=== PATIENT | female | born 1940 | race Caucasian/White ===

== ENCOUNTER 2016-09-30 14:49 | Inpatient (IN) | payer MEDICARE ==
[~2016-09-30] VITALS: Ht 161.3 cm; Wt 52.6 kg
[~2016-09-30 14:49] MED LIST: ALBU0.086 NEB; ASPI325T PO; B-1210005 PO; CARV3.125 PO; D31000CA PO; FEXO60TA PO; IPRA0.02 NEB; ISOS60 PO; KCL10C PO; LASI20TA PO; LEVA500T PO; PRED20 PO; ZOCO80TA PO
[2016-09-30 14:51] VITALS: BP 111/68; PULSE 112; RESP 20; O2SAT 98
[2016-09-30] MEDS ORDERED: SODIUM CHLORIDE 0.9% FLUSH 5 ML FLUSH IVF PRN ×2 (18:30→20:30)
--- NOTE | 2016-09-30 18:51 | PD ---
HPI Chief Complaint: Edema Time Seen by Provider: 18:17 Travel History International Travel<30 days: No Contact w/Intl Traveler<30days: No Traveled to known affect area: No History of Present Illness HPI 76-year-old female with history of CAD, CABG, hypertension, hyperlipidemia, CHF , here for evaluation of bilateral lower extremity edema, ulcerations, and weeping. Patient reports that the symptoms have been going on for the last month, however the weeping has been worse over the last week. She is having a moderate amount of pain in her lower extremities which is worse with movement, weightbearing, and palpation. She denies chest pain or dyspnea. Chart review shows that she had an echocardiogram on 02/21/13 with an EF of 20-25% with diffuse hypokinesis. She denies fevers or chills. No history of DVT or PE. She states that she was seen by her primary care physician who told her that she has poor circulation in her legs. PFSH Past Medical History Arthritis: Yes Asthma: No Autoimmune Disease: No Blood Disorders: No Anxiety: Yes Depression: Yes Heart Rhythm Problems: No Cancer: Yes Cardiac Catheterization: Yes Cardiovascular Problems: Yes High Cholesterol: Yes Chemotherapy: No Chest Pain: Yes (RESOLVED SINCE CABG) Congestive Heart Failure: Yes COPD: No Cerebrovascular Accident: Yes Coronary Artery Disease: Yes Diabetes: No Diminished Hearing: No Endocrine: No GERD: No Genitourinary: Yes Headaches: Yes Hiatal Hernia: No Hypertension: Yes Immune Disorder: No Kidney Stones: No Musculoskeletal: Yes Neurologic: Yes Psychiatric: Yes Reproductive: No Respiratory: Yes (HISTORY OF BRONCHITIS) Migraines: No Radiation Therapy: No Renal Failure: No Seizures: No Sickle Cell Disease: No Sleep Apnea: No Thyroid Disease: No Ulcer: No ?: Not Menopausal: Yes Past Surgical History Abdominal Surgery: Yes (APPY A CHILD) AICD: No Appendectomy: Yes Arteriovenous Shunt: No Cardiac Surgery: Yes (CABG 1999) Coronary Artery Bypass Graft: Yes (X2 YEAR 1999) Ear Surgery: No Endocrine Surgery: No Eye Surgery: Yes (CATARACT) Genitourinary Surgery: No Gynecologic Surgery: Yes (CONE BX) Insulin Pump: No Joint Replacement: No Oral Surgery: No (TONSILLECTOMY) Pacemaker: No Thoracic Surgery: No Tonsillectomy: Yes Other Surgery: Yes (INCISIONAL HERNIA AFTER CABG, REPAIRED) Social History Alcohol Use: Yes ("COUPLE DRINKS SEVERAL TIMES A WEEK") Tobacco Use: Yes (1 PPD) Substance Use: No Allergies-Medications (Allergen,Severity, Reaction): Coded Allergies: Sulfa (Verified Allergy, Mild, 09/30/16) Molds and Smuts (Verified Allergy, Unknown, 09/30/16) Reported Meds & Prescriptions Reported Meds & Active Scripts Active Reported Albuterol Neb (Albuterol Sulfate) 2.5 Mg/3 Ml Neb 2.5 Mg NEB Q4HR NEB PRN Aspirin DR (Aspirin) 81 Mg Tabdr 81 Mg PO EVERY OTHER DAY Fexofenadine (Fexofenadine HCl) 60 Mg Tab 60 Mg PO DAILY Ipratropium Neb (Ipratropium Cove) 0.5 Mg/2.5 Ml Amp 0.5 Mg NEB Q4HR NEB PRN Lasix (Furosemide) 20 Mg Tab 20 Mg PO DAILY K-Tab (Potassium Chloride) 10 Meq Tab 10 Meq PO DAILY Benadryl Allergy (Diphenhydramine HCl) 25 Mg Tab 25 Mg PO BID Tramadol (Tramadol HCl) 50 Mg Tab 50 Mg PO Q6H PRN Simvastatin 80 Mg Tab 80 Mg PO HS Review of Systems Except as stated in HPI: all other systems reviewed are Neg Physical Exam Narrative GENERAL: Well-developed, well-nourished, comfortable, no acute distress. SKIN: Significant bilateral lower extremity edema, left greater than right with superficial skin ulceration to the dorsal aspect of her right foot with surrounding ecchymosis and smaller ulcerations to the dorsal aspect of the left foot with weeping. Bilateral lower extremities are cool to the touch. Well- healed vertical scar on left medial leg from a venous grafting for CABG. HEAD: Atraumatic. Normocephalic. EYES: Pupils equal and round. No scleral icterus. No injection or drainage. ENT: Mucous membranes pink and moist. NECK: Trachea midline. No JVD. CARDIOVASCULAR: Regular rate and rhythm. Unable to palpate bilateral dorsalis pedis pulses, but this is likely secondary to significant amount of edema. Capillary refill is slightly delayed in bilateral toes. RESPIRATORY: No accessory muscle use. Clear to auscultation. Breath sounds equal bilaterally. GASTROINTESTINAL: Abdomen soft, non-tender, nondistended. MUSCULOSKELETAL: No obvious deformities. No clubbing. No cyanosis. Significant bilateral lower extremity edema with skin exam as above. NEUROLOGICAL: Awake and alert. No obvious cranial nerve deficits. Motor grossly within normal limits. Normal speech. PSYCHIATRIC: Appropriate mood and affect; insight and judgment normal. Data Data Last Documented VS Vital Signs Date Time Temp Pulse Resp B/P Pulse Ox O2 Delivery O2 Flow Rate FiO2 09/30/16 14:51 112 20 111/68 98 Room Air Orders Electrocardiogram (09/30/16 18:29) B-Type Natriuretic Peptide (09/30/16 18:29) Ckmb (Isoenzyme) Profile (09/30/16 18:29) Complete Blood Count With Diff (09/30/16 18:29) Comprehensive Metabolic Panel (09/30/16 18:29) Prothrombin Time / Inr (Pt) (09/30/16 18:29) Act Partial Throm Time (Ptt) (09/30/16 18:29) Troponin I (09/30/16 18:29) Chest, Single Ap (09/30/16 18:29) Ecg Monitoring (09/30/16 18:29) Iv Access Insert/Monitor (09/30/16 18:29) Oximetry (09/30/16 18:29) Sodium Chloride 0.9% Flush (Ns Flush) (09/30/16 18:30) Lactic Acid (09/30/16 18:29) Blood Culture (09/30/16 18:29) Us Leg Venous Doppler Bilat (09/30/16 ) Tibia/Fibula (Ap/Lat) (09/30/16 ) Tibia/Fibula (Ap/Lat) (09/30/16 ) Labs Laboratory Tests Test 09/30/16 18:45 White Blood Count 10.7 TH/MM3 Red Blood Count 5.39 MIL/MM3 Hemoglobin 13.9 GM/DL Hematocrit 43.6 % Mean Corpuscular Volume 80.8 FL Mean Corpuscular Hemoglobin 25.9 PG Mean Corpuscular Hemoglobin 32.0 % Concent Red Cell Distribution Width 16.6 % Platelet Count 225 TH/MM3 Mean Platelet Volume 8.5 FL Neutrophils (%) (Auto) 70.5 % Lymphocytes (%) (Auto) 20.3 % Monocytes (%) (Auto) 8.3 % Eosinophils (%) (Auto) 0.2 % Basophils (%) (Auto) 0.7 % Neutrophils # (Auto) 7.6 TH/MM3 Lymphocytes # (Auto) 2.2 TH/MM3 Monocytes # (Auto) 0.9 TH/MM3 Eosinophils # (Auto) 0.0 TH/MM3 Basophils # (Auto) 0.1 TH/MM3 CBC Comment DIFF FINAL Differential Comment MDM Medical Decision Making Medical Screen Exam Complete: Yes Emergency Medical Condition: Yes Medical Record Reviewed: Yes Interpretation(s) EKG: Sinus, rate 107, normal axis, Q waves in anterior leads, left atrial enlargement, no acute ischemic normality. Differential Diagnosis Fluid overload, PVD, cellulitis, osteomyelitis, necrotizing fasciitis, DVT, Narrative Course Chart review shows that in 2003 the patient had an arterial study that showed evidence of moderate occlusive disease in both lower extremities, possibly at or below the level of the trifurcation. Vital signs show heart rate 112, blood pressure 111/68, pulse ox 98% on room air , respiratory rate 20 breaths per minute. CBC is essentially unremarkable. At approximately 7:00 PM at the end of my shift the patient was signed out to Dr. Zaroc will follow-up with the rest of the patient's labs, imaging studies, and will disposition the patient. Al Glez MD Sep 30, 2016 18:51
--- NOTE | 2016-09-30 19:03 | RADRPT ---
EXAM DATE/TIME: 09/30/2016 18:46 [facility] COMPARISON: CHEST PA & LAT, November 27, 2015, 8:23. CHEST SINGLE AP, November 23, 2015, 3:53. INDICATIONS : Short of breath MEDICAL HISTORY : Cardiovascular disease. SURGICAL HISTORY : CABG. ENCOUNTER: Initial ACUITY: 2 days PAIN SCORE: 0/10 LOCATION: chest FINDINGS: A single view of the chest demonstrates hyperaeration bilaterally with interstitial infiltrates bilat erally. This can be seen with pulmonary edema versus pneumonia. Some of this may be chronic in nature . The heart size is enlarged but stable. There is evidence of previous cardiothoracic surgery. No sig nificant pleural effusions. The bony structures are stable.. CONCLUSION: Hyperaeration with interstitial infiltrates bilaterally. Pulmonary edema versus pneumonia would be th e considerations. Ronak Bedoya MD on September 30, 2016 at 19:00 Board Certified Radiologist. This report was verified electronically.
--- NOTE | 2016-09-30 19:04 | RADRPT ---
EXAM DATE/TIME: 09/30/2016 18:49 [facility] COMPARISON: No previous studies available for comparison. INDICATIONS : Pain, swelling and redness left tibia MEDICAL HISTORY : None. SURGICAL HISTORY : CABG. Vain harvest for cabg ENCOUNTER: Initial ACUITY: 1 week PAIN SCORE: 7/10 LOCATION: Left Tibia FINDINGS: Two view examination of the left tibia demonstrates no evidence of fracture or dislocation. There is osteopenia of the bony structures. Otherwise, the bony structures are intact. Soft tissues are within normal limits. Surgical clips are seen throughout the soft tissues. There are some degenerative grossman ges at the knee joint.. CONCLUSION: Osteopenia. Otherwise unremarkable examination. Ronak Bedoya MD on September 30, 2016 at 19:01 Board Certified Radiologist. This report was verified electronically.
[2016-09-30 19:05] LABS: AUTOMATED NEUTROPHIL # 7.6 TH/MM3 (1.8-7.7); BASOPHIL # 0.1 TH/MM3 (0-0.2); BASOPHIL % 0.7 % (0.0-2.0); EOSINOPHIL % 0.2 % (0.0-4.0); HEMATOCRIT 43.6 % (35.0-46.0); HEMO FLAGS DIFF FINAL; LYMPH % 20.3 % (9.0-44.0); LYMPHOCYTE # 2.2 TH/MM3 (1.0-4.8); MEAN CELL VOLUME 80.8 FL (80.0-100.0); MEAN CORPUSCULAR HEMOGLOBIN 25.9 PG (27.0-34.0); MONO % 8.3 % (0.0-8.0); NEUT % 70.5 % (16.0-70.0); PLATELET COUNT 225 TH/MM3 (150-450); RED BLOOD COUNT 5.39 MIL/MM3 (4.00-5.30); RED CELL DISTRIBUTION WIDTH 16.6 % (11.6-17.2); WHITE BLOOD COUNT 10.7 TH/MM3 (4.0-11.0)
--- NOTE | 2016-09-30 19:05 | RADRPT ---
EXAM DATE/TIME: 09/30/2016 18:53 [facility] COMPARISON: No previous studies available for comparison. INDICATIONS : Pain, swelling and redness right tibia MEDICAL HISTORY : None. SURGICAL HISTORY : None. ENCOUNTER: Initial ACUITY: 1 week PAIN SCORE: 8/10 LOCATION: Right Tibia FINDINGS: Two view examination of the right tibia demonstrates no evidence of fracture or dislocation. There is osteopenia the bony structures. There are some primary degenerative changes of the knee joint. Other [place], the bony structures are intact. There is some vascular calcifications present.. CONCLUSION: Osteopenia. Degenerative changes at the knee joint. Otherwise, unremarkable exam. Ronak Bedoya MD on September 30, 2016 at 19:03 Board Certified Radiologist. This report was verified electronically.
[2016-09-30] MEDS ORDERED: K-TA10TA PO (19:11)
[2016-09-30] MEDS ORDERED: BENA25TA3 PO (19:11)
[2016-09-30] MEDS ORDERED: SIMV80TA PO (19:11)
[2016-09-30] MEDS ORDERED: FURO1TAB62 PO (19:11)
[2016-09-30] MEDS ORDERED: ASPI81TA5 PO (19:11)
[2016-09-30] MEDS ORDERED: TRAM50TA PO (19:11)
[2016-09-30] MEDS ORDERED: FEXO60TA PO (19:11)
[2016-09-30] MEDS ORDERED: IPRA0.02 NEB (19:11)
[2016-09-30] MEDS ORDERED: ALBU0.08 NEB (19:11)
[2016-09-30] MEDS ORDERED: VANCOMYCIN INJ 1,000 MG in SODIUM CHLOR 0.9% 250 ML INJ 250 ML IV ONE (19:15)
[2016-09-30] MEDS ORDERED: PIPERACIL-TAZO 3.375 GM PREMIX 50 ML IV ONE (19:15)
[2016-09-30] MEDS ORDERED: FUROSEMIDE 40 MG/4 ML VIAL IV PUSH ONE (19:15)
--- NOTE | 2016-09-30 19:15 | PD ---
Physical Exam Narrative General: The patient is a well-developed, thin appearing female, in no acute distress. Head and Neck exam: Head is normocephalic atraumatic. Eyes: EOMI, pupils are equal round and reactive to light. Nose: Midline septum with pink mucous membranes Mouth: Dentition unremarkable. Moist mucus membranes. Posterior oropharynx is not erythematous. No tonsillar hypertrophy. Uvula midline. Airway patent. Neck: No palpable lymphadenopathy. No nuchal rigidity. No thyromegaly. Cardiovascular: Regular rate and rhythm without murmurs, gallops, or rubs. Lungs: Decreased breath sounds in bilateral bases with crackles audible in bilateral bases. No wheezes, no rhonchi, no accessory muscle use. No paroxysmal abdominal breathing, no conversational dyspnea. Abdomen: Soft, without tenderness to palpation in all 4 quadrants of the abdomen. No guarding, rebound, or rigidity. Normal bowel sounds are audible. No tenderness on palpation of McBurney's point. Extremities: No clubbing or cyanosis. The patient has 2+ pitting edema bilateral lower extremities worse in the feet. 2+ pulses in bilateral upper extremities. No palpable pulses in bilateral lower extremities which may be related to the patient's degree of edema. The patient's right foot has erythema and an area of ulceration developing over the dorsum of the right foot with weeping noted. The patient has weeping noted of the left dorsum of the foot. The patient reports that the right foot is tender to the touch. The patient has a 5 second capillary refill noted on the right foot, for second capillary refill of the left foot. As the pulses are not palpable in the patient's feet, the patient's feet will be dopplered. Neurologic Exam: Grossly nonfocal. Data Data Last Documented VS Vital Signs Date Time Temp Pulse Resp B/P Pulse Ox O2 Delivery O2 Flow Rate FiO2 09/30/16 20:13 18 96 09/30/16 14:51 112 111/68 Room Air Orders Electrocardiogram (09/30/16 18:29) B-Type Natriuretic Peptide (09/30/16 18:29) Ckmb (Isoenzyme) Profile (09/30/16 18:29) Complete Blood Count With Diff (09/30/16 18:29) Comprehensive Metabolic Panel (09/30/16 18:29) Prothrombin Time / Inr (Pt) (09/30/16 18:29) Act Partial Throm Time (Ptt) (09/30/16 18:29) Troponin I (09/30/16 18:29) Chest, Single Ap (09/30/16 18:29) Ecg Monitoring (09/30/16 18:29) Iv Access Insert/Monitor (09/30/16 18:29) Oximetry (09/30/16 18:29) Sodium Chloride 0.9% Flush (Ns Flush) (09/30/16 18:30) Lactic Acid (09/30/16 18:29) Blood Culture (09/30/16 18:29) Us Leg Venous Doppler Bilat (09/30/16 ) Tibia/Fibula (Ap/Lat) (09/30/16 ) Tibia/Fibula (Ap/Lat) (09/30/16 ) Furosemide Inj (Lasix Inj) (09/30/16 19:15) Vancomycin Inj (Vancomycin Inj) (09/30/16 19:15) Piperacil-Tazo 3.375 Gm Premix (Zosyn 3. (09/30/16 19:15) CKMB (09/30/16 18:45) CKMB% (09/30/16 18:45) Cta Runoff W Iv Contrast W 3d (09/30/16 ) Admit Order (Ed Use Only) (09/30/16 20:17) Morphine Inj (Morphine Inj) (09/30/16 20:30) Ondansetron Inj (Zofran Inj) (09/30/16 20:30) Urinary Catheter Insert/Apply (09/30/16 20:17) Labs Laboratory Tests Test 09/30/16 09/30/16 18:45 19:30 White Blood Count 10.7 TH/MM3 Red Blood Count 5.39 MIL/MM3 Hemoglobin 13.9 GM/DL Hematocrit 43.6 % Mean Corpuscular Volume 80.8 FL Mean Corpuscular Hemoglobin 25.9 PG Mean Corpuscular Hemoglobin 32.0 % Concent Red Cell Distribution Width 16.6 % Platelet Count 225 TH/MM3 Mean Platelet Volume 8.5 FL Neutrophils (%) (Auto) 70.5 % Lymphocytes (%) (Auto) 20.3 % Monocytes (%) (Auto) 8.3 % Eosinophils (%) (Auto) 0.2 % Basophils (%) (Auto) 0.7 % Neutrophils # (Auto) 7.6 TH/MM3 Lymphocytes # (Auto) 2.2 TH/MM3 Monocytes # (Auto) 0.9 TH/MM3 Eosinophils # (Auto) 0.0 TH/MM3 Basophils # (Auto) 0.1 TH/MM3 CBC Comment DIFF FINAL Differential Comment Prothrombin Time 14.3 SEC Prothromb Time International 1.3 RATIO Ratio Activated Partial 28.3 SEC Thromboplast Time Sodium Level 118 MEQ/L Potassium Level 5.1 MEQ/L Chloride Level 81 MEQ/L Carbon Dioxide Level 23.9 MEQ/L Anion Gap 13 MEQ/L Blood Urea Nitrogen 31 MG/DL Creatinine 1.21 MG/DL Estimat Glomerular Filtration 43 ML/MIN Rate Random Glucose 70 MG/DL Calcium Level 9.1 MG/DL Total Bilirubin 1.3 MG/DL Aspartate Amino Transf 45 U/L (AST/SGOT) Alanine Aminotransferase 55 U/L (ALT/SGPT) Alkaline Phosphatase 132 U/L Total Creatine Kinase 189 U/L Creatine Kinase MB 5.8 NG/ML Troponin I 0.02 NG/ML B-Type Natriuretic Peptide 4855 PG/ML Total Protein 6.7 GM/DL Albumin 3.2 GM/DL Lactic Acid Level 1.8 mmol/L [facility] Medical Record Reviewed: Yes Supervised Visit with ALINE: No Interpretation(s) Last Impressions Chest X-Ray 09/30/161828 Signed Impressions: Service Date/Time: Friday, September 30, 2016 18:46 - CONCLUSION: Hyperaeration with interstitial infiltrates bilaterally. Pulmonary edema versus pneumonia would be the considerations. Ronak Bedoya MD Tibia/Fibula X-Ray 09/30/16 Signed Impressions: Service Date/Time: Friday, September 30, 2016 18:49 - CONCLUSION: Osteopenia. Otherwise unremarkable examination. Ronak Bedoya MD Tibia/Fibula X-Ray 09/30/16 0000 Signed Impressions: Service Date/Time: Friday, September 30, 2016 18:53 - CONCLUSION: Osteopenia. Degenerative changes at the knee joint. Otherwise, unremarkable exam. Ronak Bedoya MD Lower Extremity Ultrasound 09/30/16 0000 Signed Impressions: Service Date/Time: Friday, September 30, 2016 18:51 - CONCLUSION: No evidence of DVT. Ronak Bedoya MD Narrative Course During the course of the patients emergency department visit, the patients history, examination, and differential diagnosis were reviewed with the patient. The patient had IV access obtained and blood work sent for analysis. The patient's case was checked out to me by at the conclusion of admission. Please see his complete history and physical. The patient is a 76- year-old female who presents to [facility] emergency Department with lower extremity edema that she reports is been worsening over the last month. She reports she's had increased pain in her ankles and feet over the last week with erythema and some bruising with weeping noted that is worse in the right foot. She denies having any fevers but reports having some chills. She reports having some nausea but no vomiting. From reviewing her past medical history she does have a history of coronary artery disease, history of [place] artery bypass grafting, history of congestive heart failure with a prior ejection fraction of 20-25%, and moderate occlusive disease in bilateral lower extremities on imaging done in 2003. The patient was provided Zosyn 3.375 g IV, vancomycin 1 g IV, Lasix 40 mg IV was given 1 given the patient's pulmonary edema noted on chest x-ray. The patients laboratory studies were reviewed and remarkable for a white count of 10.7, hemoglobin 13.9, platelets 225 with neutrophils of 70.5, monocytes 8.3 , CMP is remarkable for sodium of 118, chloride 81, BUN 31, creatinine 1.21, total bilirubin 1.3, AST 45, ALT 55, alkaline phosphatase 132, CPK 189 with 5.8 CK-MB, troponin I 0.02, BNP 4855, lactic acid 1.8, INR 1.3. Radiology studies were reviewed and remarkable for a chest x-ray that shows bilateral pulmonary edema. Bilateral tib-fib x-rays are unremarkable except for osteopenia. Bilateral lower extremity ultrasound is negative for DVT. The patients results were discussed with the patient, including the plan of care. I explained that further testing and/ or monitoring is indicated based on the patients history, examination, and/ or laboratory findings. Therefore, I recommended admission for additional evaluation. The patient expressed understanding and was agreeable with this plan. The patient was admitted to the hospital in stable condition and sent to a bed under the care of the [facility] hospitalist. Physician Communication Physician Communication The patient's case is discussed with Dr. Sheppard who did agree to admit the patient for further evaluation and treatment at this time. Diagnosis Primary Impression: Acute exacerbation of congestive heart failure Qualified Code: I50.9 - Acute on chronic congestive heart failure, unspecified congestive heart failure type Additional Impression: Peripheral arterial disease Admitting Information Admitting Physician Requests: Admit Sole Zarco MD Sep 30, 2016 19:15
[2016-09-30 19:19] LABS: APTT (PATIENT) 28.3 SEC (24.3-30.1); INTERNATIONAL NORMALIZED RATIO 1.3 RATIO; PROTHROMBIN TIME - PATIENT 14.3 SEC (9.8-11.6)
--- NOTE | 2016-09-30 19:33 | RADRPT ---
EXAM DATE/TIME: 09/30/2016 18:51 [facility] COMPARISON: No previous studies available for comparison. INDICATIONS : Bilateral leg swelling. MEDICAL HISTORY : Congestive heart failure. Hypercholesterolemia. Arthritis. CVA. CAD. Bronchitis. Chest pain. Dyspnea. HTN. Degenerative disc disease. UTI. Depression. Anxiety. Clotting problems. MRSA. SURGICAL HISTORY : CABGTonsillectomy. Appendectomy.Bilateral cataract surgery with lens implants. Cardiac cath. [facility] bi opsy. Incisional hernia after CABG repaired. Blood transfusions. ENCOUNTER: Initial ACUITY: 1 month PAIN SCORE: 8/10 LOCATION: Bilateral leg. TECHNIQUE: Venous ultrasound of the left and right leg was performed from the inguinal ligament to the proximal calf. Real-time, color Doppler and spectral tracing, compression and augmentation techniques were us ed. FINDINGS: RIGHT LEG: There is normal compressibility of the deep venous system from the inguinal region to the proximal ca lf. No echogenic clot is seen in the lumen of the common femoral, femoral, popliteal, and posterior tibial veins. There is a normal response of the venous system to proximal and distal augmentation an d respiration. There is nonspecific edema in the soft tissues. LEFT LEG: There is normal compressibility of the deep venous system from the inguinal region to the proximal ca lf. No echogenic clot is seen in the lumen of the common femoral, femoral, popliteal, and posterior tibial veins. There is a normal response of the venous system to proximal and distal augmentation an d respiration. There is nonspecific edema in the soft tissues. CONCLUSION: No evidence of DVT. Ronak Bedoya MD on September 30, 2016 at 19:31 Board Certified Radiologist. This report was verified electronically.
[2016-09-30 19:48] LABS: ALKALINE PHOSPHATASE 132 U/L (45-117); ALT (GPT) 55 U/L (10-53); ANION GAP 13 MEQ/L (5-15); AST (GOT) 45 U/L (15-37); BICARBONATE 23.9 MEQ/L (21.0-32.0); BLOOD UREA NITROGEN 31 MG/DL (7-18); CHLORIDE 81 MEQ/L (98-107); CREATINE KINASE 189 U/L (26-192); GLOMERULAR FILTRATION RATE 43 ML/MIN (>89); TOTAL BILIRUBIN ADULT 1.3 MG/DL (0.2-1.0)
[2016-09-30 20:00] LABS: POTASSIUM 5.1 MEQ/L (3.5-5.1)
[2016-09-30 20:01] LABS: SODIUM (NA) 118 MEQ/L (136-145)
[2016-09-30 20:13] VITALS: RESP 18; O2SAT 96
[2016-09-30 20:14] LABS: CKMB 5.8 NG/ML (0.5-3.6)
--- NOTE | 2016-09-30 20:28 | HHI.HP ---
HPI Service [facility] Hospitalists Primary Care Physician Stephon Hernandez Admission Diagnosis CHF exac, Hyponatremia Chief Complaint: Swelling in feet, SOB Travel History International Travel<30 Days: No Contact w/Intl Traveler <30 Da: No Traveled to Known Affected Are: No History of Present Illness 76-year-old female with history of CAD, CABG, hypertension, hyperlipidemia, CHF , who is here for evaluation of bilateral lower extremity edema, ulcerations, and weeping which has been worsening over last few days. Patient reports that the symptoms have been going on for the last month, however the weeping has been worse over the last week. She is having a moderate amount of pain in her lower extremities which is worse with movement, weightbearing, and palpation. She denies chest pain or dyspnea. Chart review shows that she had an echocardiogram on 02/21/13 with an EF of 20-25% with diffuse hypokinesis. She denies fevers or chills. No history of DVT or PE. She states that she was seen by her primary care physician who told her that she has poor circulation in her legs. She was actually placed on hospice last year but was distant and rolled in May 2016. She wishes to be DNR but does want some assistance with her current heart failure and peripheral vascular disease associated pain. Review of Systems Constitutional: COMPLAINS OF: Fatigue, Weight gain Respiratory: DENIES: Apneas, Cough, Snoring, Wheezing, Hemoptysis, Sputum production Cardiovascular: COMPLAINS OF: Dyspnea on Exertion, Lower Extremity Edema, Claudication, DENIES: Chest pain, Palpitations, Syncope, PND, Orthopnea Gastrointestinal: DENIES: Abdominal pain, Black stools, Bloody stools, BRB per rectum, Constipation, Diarrhea, GERD, Nausea, Reflux, Vomiting, Difficulty Swallowing, Anorexia, See HPI Musculoskeletal: COMPLAINS OF: Joint pain, Back pain Psychiatric: COMPLAINS OF: Anxiety Past Family Social History Past Medical History Abdominal aortic aneurysm Atherosclerosis of the aorta Coronary artery disease Cardiomyopathy with EF around 20-25% Hypertension Hyperlipidemia Emig cardiomyopathy Prior [place] Tobacco use Primary fibrosis Reset osmostat syndrome Past Surgical History Appendectomy 1955 Coronary artery bypass grafting around 2000 Cervical conization Tonsillectomy 1950 Umbilical hernia repair 2000 Reported Medications Albuterol Neb (Albuterol Sulfate) 2.5 Mg/3 Ml Neb 2.5 Mg NEB Q4HR NEB PRN Aspirin DR (Aspirin) 81 Mg Tabdr 81 Mg PO EVERY OTHER DAY Fexofenadine (Fexofenadine HCl) 60 Mg Tab 60 Mg PO DAILY Ipratropium Neb (Ipratropium [place]) 0.5 Mg/2.5 Ml Amp 0.5 Mg NEB Q4HR NEB PRN Lasix (Furosemide) 20 Mg Tab 20 Mg PO DAILY K-Tab (Potassium Chloride) 10 Meq Tab 10 Meq PO DAILY Benadryl Allergy (Diphenhydramine HCl) 25 Mg Tab 25 Mg PO BID Tramadol (Tramadol HCl) 50 Mg Tab 50 Mg PO Q6H PRN Simvastatin 80 Mg Tab 80 Mg PO HS Allergies: Coded Allergies: Sulfa (Verified Allergy, Mild, 09/30/16) Molds and Smuts (Verified Allergy, Unknown, 09/30/16) Family History Noncontributory Social History Drinks approximately 1 alcoholic beverage per day Retired from [employer] work Long-term smoker at 1 pack per day presently Lives with one adult son Originally from [place], [place]. Physical Exam Vital Signs Vital Signs Date Time Temp Pulse Resp B/P Pulse Ox O2 Delivery O2 Flow Rate FiO2 09/30/16 20:13 18 96 09/30/16 14:51 112 20 111/68 98 Room Air Physical Exam GENERAL: This is a thin, well-developed patient, in moderate distress regarding leg pain. SKIN: Erythematous rash bilateral feet with apparent area of necrosis dorsum of the right foot HEAD: Atraumatic. Normocephalic. No temporal or scalp tenderness. EYES: Pupils equal round and reactive. Extraocular motions intact. No scleral icterus. No injection or drainage. ENT: Nose without bleeding, purulent drainage or septal hematoma. Airway patent. NECK: Trachea midline. No JVD or lymphadenopathy. Supple, nontender, no meningeal signs. CARDIOVASCULAR: Regular rate and rhythm with 2/6 systolic ejection murmur best heard in aortic space. No rub. RESPIRATORY: Few crackles in the bases. Fair air movement throughout. GASTROINTESTINAL: Abdomen soft, non-tender, slightly distended. No hepato- splenomegaly, or palpable masses. No guarding. MUSCULOSKELETAL: Distal lower extremities with 2+ edema with some clear serous oozing from the calves and shins. Feet are quite cool to the touch and somewhat tevin in color. No calf tenderness. As noted above, right foot appears to have some dark area of necrosis dorsally with some slight skin disruption. NEUROLOGICAL: Awake and alert. Cranial nerves II through XII intact. Motor and sensory grossly within normal limits. Normal speech. Laboratory Laboratory Tests Test 09/30/16 18:45 White Blood Count 10.7 Red Blood Count 5.39 Hemoglobin 13.9 Hematocrit 43.6 Mean Corpuscular Volume 80.8 Mean Corpuscular Hemoglobin 25.9 Mean Corpuscular Hemoglobin 32.0 Concent Red Cell Distribution Width 16.6 Platelet Count 225 Mean Platelet Volume 8.5 Neutrophils (%) (Auto) 70.5 Lymphocytes (%) (Auto) 20.3 Monocytes (%) (Auto) 8.3 Eosinophils (%) (Auto) 0.2 Basophils (%) (Auto) 0.7 Neutrophils # (Auto) 7.6 Lymphocytes # (Auto) 2.2 Monocytes # (Auto) 0.9 Eosinophils # (Auto) 0.0 Basophils # (Auto) 0.1 CBC Comment DIFF FINAL Differential Comment Prothrombin Time 14.3 Prothromb Time International 1.3 Ratio Activated Partial 28.3 Thromboplast Time Sodium Level 118 Potassium Level 5.1 Chloride Level 81 Carbon Dioxide Level 23.9 Anion Gap 13 Blood Urea Nitrogen 31 Creatinine 1.21 Estimat Glomerular Filtration 43 Rate Random Glucose 70 Calcium Level 9.1 Total Bilirubin 1.3 Aspartate Amino Transf 45 (AST/SGOT) Alanine Aminotransferase 55 (ALT/SGPT) Alkaline Phosphatase 132 Total Creatine Kinase 189 Creatine Kinase MB 5.8 Troponin I 0.02 Total Protein 6.7 Albumin 3.2 Date/Time Procedure Status Source Growth 09/30/16 19:25 Aerobic Blood Culture Received Blood Peripheral Pending 09/30/16 19:25 Anaerobic Blood Culture Received Blood Peripheral Pending Result Diagram: 09/30/16 1845 09/30/16 1845 Imaging Last 72 hours Impressions Chest X-Ray 09/30/16 1829 Signed Impressions: Service Date/Time: Friday, September 30, 2016 18:46 - CONCLUSION: Hyperaeration with interstitial infiltrates bilaterally. Pulmonary edema versus pneumonia would be the considerations. Ronak Bedoya MD Tibia/Fibula X-Ray 09/30/16 0000 Signed Impressions: Service Date/Time: Friday, September 30, 2016 18:49 - CONCLUSION: Osteopenia. Otherwise unremarkable examination. Ronak Bedoya MD Tibia/Fibula X-Ray 09/30/16 0000 Signed Impressions: Service Date/Time: Friday, September 30, 2016 18:53 - CONCLUSION: Osteopenia. Degenerative changes at the knee joint. Otherwise, unremarkable exam. Ronak Bedoya MD Lower Extremity Ultrasound 09/30/16 0000 Signed Impressions: Service Date/Time: Friday, September 30, 2016 18:51 - CONCLUSION: No evidence of DVT. Ronak Bedoya MD Assessment and Plan Problem List: (1) Ischemic cardiomyopathy Status: Chronic Plan: Apparent fluid overload with likely acute exacerbation of congestive heart failure. Somewhat difficult patient to manage given her hyponatremia and other comorbidities. Place her in the intensive care unit overnight at least for close monitoring (2) Hyponatremia Status: Acute Plan: Acute exacerbation of chronic issue likely exacerbated by reset Osmostat syndrome associated with her cardiomyopathy We'll monitor closely. Replace as needed. Outpatient sodium tends to run around 130, however she has been down to 110 as an outpatient as well. (3) Peripheral arterial disease Status: Chronic Plan: Relatively significant appearing ischemic changes of both feet. We'll have vascular see the patient. Based on their previous notes and patient's multiple comorbidities, it is unlikely that aggressive intervention will be sought. It is possible to interventional radiology may be able to provide some less invasive intervention. (4) Thoracic aortic aneurysm without rupture Status: Chronic Plan: Follow-up as outpatient. (5) HTN (hypertension) Status: Chronic Plan: BP well controlled presently. We'll hold off any blood pressure medications this point. Hopefully she will tolerate the furosemide. (6) COPD (chronic obstructive pulmonary disease) Status: Chronic Plan: Continue nebulizers. (7) Tobacco abuse Status: Chronic Plan: Only encourage her to stop smoking although at this point it is unlikely that she will comply. Assessment and Plan Patient has multiple comorbidities as noted above. She desires to be DNR. She was on hospice before and is not opposed to reenlist in with hospice, but she was disenrolled by them in May 2016 as she was doing better. Code Status DNR Discussed Condition With Patient and ER physician Physician Certification 2 Midnight Certification Type: Admission for Inpatient Services Order for Inpatient Services The services are ordered in accordance with Medicare regulations or non- Medicare payer requirements, as applicable. In the case of services not specified as inpatient-only, they are appropriately provided as inpatient services in accordance with the 2-midnight benchmark. Estimated LOS (days): 3 days is the estimated time the patient will need to remain in the hospital, assuming treatment plan goals are met and no additional complications. Post-Hospital Plan: Not yet determined Urbano Sheppard MD PhD Sep 30, 2016 20:28
[2016-09-30] MEDS ORDERED: ONDANSETRON HCL 4 MG/2 ML VIAL IV PUSH ONE (20:30)
[2016-09-30] MEDS ORDERED: MORPHINE SULFATE 4 MG/ML INJ IV PUSH ONE (20:30)
[2016-09-30] MEDS ORDERED: Vancomycin Consult Pharmacy 1 EA OTHER SCH (20:45)
[2016-09-30 20:53] VITALS: BP 115/70; PULSE 99; RESP 18; O2SAT 96
[2016-09-30] MEDS: SODIUM CHLORIDE 0.9% FLUSH 5 ML FLUSH IVF SCH (21:00)
[2016-09-30] MEDS ORDERED: IOHEXOL 350 MG/ML 10 ML VIAL (for RAD DIAG) IV ONE (21:30)
[2016-09-30 21:48] VITALS: BP 118/64; PULSE 104; RESP 16; O2SAT 95
--- NOTE | 2016-09-30 22:19 | RADRPT ---
EXAM DATE/TIME: 09/30/2016 21:17 [place] COMPARISON: No previous studies available for comparison. INDICATIONS : Bilateral feet pain with swelling. IV CONTRAST: 90 cc Omnipaque 350 (iohexol) IV RADIATION DOSE: 7.96 CTDIvol (mGy) MEDICAL HISTORY : Cardiovascular disease. Hypertension. Cerebrovascular disease. SURGICAL HISTORY : Appendectomy. ENCOUNTER: Initial ACUITY: 1 month PAIN SCALE: 5/10 LOCATION: Bilateral feet TECHNIQUE: Volumetric scanning was performed using a multi-row detector CT scanner. The data was post processed with a variety of visualization algorithms including full volume maximum intensity projection, multi -planar sliding thin slab reformation, curved planar reformation, and surface rendering techniques. Using automated exposure control and adjustment of the mA and/or kV according to patient size, radiat ion dose was kept as low as reasonably achievable to obtain optimal diagnostic quality images. FINDINGS: ABDOMINAL AORTA: There is diffuse atherosclerotic changes throughout the aorta. There is aneurysmal dilatation of the proximal aorta just below the diaphragm measuring 3.8 x 3.8 cm. There is aneurysmal dilatation of the infrarenal abdominal aorta measuring 4.0 x 3.3 cm. The celiac and SMA vessels are patent. The renal arteries are also patent bilaterally. There is calcified plaquing at the origin of both renal arterie s. No definite high-grade stenosis is seen. BIFURCATION: Atherosclerotic changes at the bifurcation. RIGHT PELVIS: There is calcified plaquing along the right common iliac artery, external iliac artery and femoral ar amanda without evidence of any focal or high-grade stenosis. LEFT PELVIS: There is calcified plaquing along the left common iliac artery, external iliac artery and femoral art mitul without evidence of high grade stenosis. RIGHT THIGH: There is diffuse calcified plaquing throughout the SFA with multiple areas of narrowing. No segmental occlusion is demonstrated. LEFT THIGH: There is diffuse calcified plaquing throughout the SFA with multiple areas of narrowing. No segmental occlusion is demonstrated. RIGHT KNEE: Popliteal artery is patent without focal or high-grade stenosis. There are some calcified plaques. LEFT KNEE: Popliteal artery is patent without focal or high-grade stenosis. There are some calcified plaques. RIGHT LEG: There are atherosclerotic changes at the trifurcation. There is a 2 vessel runoff down to the right a nkle. LEFT LEG: There are atherosclerotic changes at the trifurcation. There is a 2-3 vessel runoff down to the ankle . There are bilateral renal cysts. Small amount of free fluid deep in the pelvis. Nonspecific edema in the body wall suggesting anasarca. Elizondo catheter in the bladder. CONCLUSION: 1. There is aneurysmal dilatation of the upper abdominal aorta measuring 3.8 x 3.8 cm. 2. There is aneurysmal dilatation of the infrarenal abdominal aorta measuring 4.0 x 3.3 cm 3. There is diffuse atherosclerotic plaquing throughout the aorta. 4. There is diffuse calcified plaques involving the pelvic vessels bilaterally as well as the lower e xtremities bilaterally without evidence of segmental occlusion. 5. There is at least a 2 vessel runoff to both ankles. Ronak Bedoya MD on September 30, 2016 at 22:07 Board Certified Radiologist. This report was verified electronically.
[2016-09-30] MEDS ORDERED: traMADol HCL 50 MG TAB PO PRN (22:30)
[2016-09-30] MEDS ORDERED: RESP: ALBUTEROL 2.5 MG/IPRATROPIUM 0.5 MG NEB (PRN) NEB (22:30)
[2016-09-30 22:50] VITALS: BP 111/62; PULSE 102; RESP 16; O2SAT 95
[2016-10-01] VITALS (15 sets, daily range): BP systolic 90–124; BP diastolic 54–58; PULSE 99–117; RESP 13–30; TEMP 97.3–98; O2SAT 88–99
[2016-10-01] MEDS ORDERED: CHLORHEXIDINE GLUCONATE 2 % 1 PACK (2 CLOTHS)(extra cloths) TOP PRN (00:45)
[2016-10-01] MEDS: MORPHINE SULFATE 4 MG/ML INJ IV PUSH PRN ×2 (00:50→21:32)
[2016-10-01 01:32] LABS: BICARBONATE 22.6 MEQ/L (21.0-32.0); POTASSIUM 4.8 MEQ/L (3.5-5.1)
[2016-10-01] MEDS: CHLORHEXIDINE GLUCONATE 2 % 1 PACK (2 CLOTHS)(taper/protocol) TOP SCH (04:00)
[2016-10-01 06:00] LABS: ALKALINE PHOSPHATASE 122 U/L (45-117); ALT (GPT) 55 U/L (10-53); ANION GAP 11 MEQ/L (5-15); AST (GOT) 44 U/L (15-37); BICARBONATE 23.4 MEQ/L (21.0-32.0); BLOOD UREA NITROGEN 28 MG/DL (7-18); CHLORIDE 85 MEQ/L (98-107); GLOMERULAR FILTRATION RATE 46 ML/MIN (>89); POTASSIUM 4.5 MEQ/L (3.5-5.1); TOTAL BILIRUBIN ADULT 1.4 MG/DL (0.2-1.0)
[2016-10-01 06:03] LABS: SODIUM (NA) 119 MEQ/L (136-145)
--- NOTE | 2016-10-01 08:25 | HHI.PR ---
Subjective Remarks lethargic. arousable. clearly states she is dnr and wants nothing aggressive says the swelling is new over past week. Objective Vitals lethargic arousable heart reg lung diminished bs abd s/nt ext 2plus pitting edema feet and lower ext's. denuded skin dorsal feet with weeping. some areas of ischemic looking tissue on left dorsal foot. feet are cold Vital Signs Date Time Temp Pulse Resp B/P Pulse Ox O2 Delivery O2 Flow Rate FiO2 10/01/16 07:21 97 Nasal Cannula 3.00 10/01/16 06:00 114 10/01/16 04:00 111 10/01/16 04:00 98.0 111 13 105/55 99 10/01/16 02:16 93 Nasal Cannula 2.00 10/01/16 02:00 117 10/01/16 01:58 88 21 10/01/16 01:52 25 10/01/16 00:34 97.3 110 30 124/58 94 09/30/16 22:50 102 16 111/62 95 Nasal Cannula 09/30/16 21:48 104 16 118/64 95 Nasal Cannula 2 09/30/16 20:53 99 18 115/70 96 Nasal Cannula 2 09/30/16 20:13 18 96 09/30/16 14:51 112 20 111/68 98 Room Air 09/30/16 09/30/16 10/01/16 15:00 23:00 07:00 Intake Total 310 ml Output Total 800 ml Balance -490 ml Intake Oral 300 ml IV Total 10 ml Output Urine Total 800 ml Stool Total 0 ml Result Diagram: 09/30/16 1845 10/01/16 0450 Imaging Last 72 hours Impressions Chest X-Ray 09/30/16 1829 Signed Impressions: Service Date/Time: Friday, September 30, 2016 18:46 - CONCLUSION: Hyperaeration with interstitial infiltrates bilaterally. Pulmonary edema versus pneumonia would be the considerations. Ronak Bedoya MD Tibia/Fibula X-Ray 09/30/16 0000 Signed Impressions: Service Date/Time: Friday, September 30, 2016 18:49 - CONCLUSION: Osteopenia. Otherwise unremarkable examination. Ronak Bedoya MD Tibia/Fibula X-Ray 09/30/16 0000 Signed Impressions: Service Date/Time: Friday, September 30, 2016 18:53 - CONCLUSION: Osteopenia. Degenerative changes at the knee joint. Otherwise, unremarkable exam. Ronak Bedoya MD Lower Extremity Ultrasound 09/30/16 0000 Signed Impressions: Service Date/Time: Friday, September 30, 2016 18:51 - CONCLUSION: No evidence of DVT. Ronak Bedoya MD A/P Problem List: (1) Ischemic cardiomyopathy Status: Acute Plan: Pt with severe chf with exacerbation. ef 20-25%. severe hyponatremia. felt to be related to hypervolemia underperfused feet bilaterally/wounds/ischemic tissue. pad/aneurysmal areas of abdomen aorta/infrarenal aorta but no segmental occlusion noted on cta/runoff. pt is dnr cont iv diuresis today and monitor bmp not tolerating bp meds. vascular was consulted for opinion overnight. wound care echo (2) Hyponatremia Status: Acute Plan: see above (3) Peripheral arterial disease Status: Acute Plan: see above (4) Thoracic aortic aneurysm without rupture Status: Chronic Plan: Follow-up as outpatient. (5) HTN (hypertension) Status: Chronic Plan: hold bp meds. (6) COPD (chronic obstructive pulmonary disease) Status: Chronic Plan: Continue nebulizers. (7) Tobacco abuse Status: Chronic Plan: cessation. Jasvir Darnell MD Oct 01, 2016 08:25
[2016-10-01] MEDS: FUROSEMIDE 40 MG/4 ML VIAL IV PUSH SCH ×2 (10:14→17:39)
--- NOTE | 2016-10-01 10:14 | EKG ---
Date Performed: 09/30/2016 Time Performed: 18:05:12 PTAGE: 76 years EKG: SINUS TACHYCARDIA LEFT ATRIAL ENLARGEMENT POSSIBLE ANTERIOR MYOCARDIAL INFARCTION ABNORMAL ECG NO PREVIOUS TRACING DOCTOR: Marlon Mathews Interpretating Date/Time 10/01/2016 10:12:23
[2016-10-01] MEDS: SODIUM CHLORIDE 0.9% FLUSH 5 ML FLUSH IVF SCH ×2 (10:15→20:31)
[2016-10-01] MEDS: ASPIRIN 81 MG CHEW TAB CHEW SCH (10:15)
--- NOTE | 2016-10-01 10:32 | EC ---
Study Study Date:10/01/2016 STUDY CONCLUSIONS SUMMARY - Procedure narrative: Transthoracic echocardiography. Image quality was good. Scanning was performed from the parasternal, apical, and subcostal acoustic windows. - Left ventricle: The cavity size was moderately dilated. Wall thickness was normal. Systolic function was abnormal. The estimated ejection fraction was likely no greater than10%. Akinesis of the inferior and posterior schmitz, moderate to severe hypokinesis of all other segments of the left ventricle. - Aortic valve: Trileaflet;slightly thickened leaflets. - Mitral valve: Mild regurgitation. - Left atrium: The atrium was mildly dilated. - Right ventricle: The cavity size was mildly dilated. Wall thickness was normal. Systolic function was moderately to severely reduced. - Right atrium: The atrium was mildly dilated. - Tricuspid valve: Mild regurgitation. If LV function is below 40, please consider prescribing an ACEI or ARB or document rationale for non-use. PROCEDURE DATA STUDY STATUS: Elective. Procedure: Transthoracic echocardiography. Image quality was good. Scanning was performed from the parasternal, apical, and subcostal acoustic windows. Study completion: The patient tolerated the procedure well. Transthoracic echocardiography. M-mode, complete 2D, complete spectral Doppler, and color Doppler. Height: Height: 64in. Weight: Weight: 109.8lb. Body mass index: BMI: 18.9kg/m^2. Body surface area: BSA: 1.52m^2. Patient status: Inpatient. CARDIAC ANATOMY LEFT VENTRICLE: The cavity size was moderately dilated. Wall thickness was normal. Systolic function was abnormal. The estimated ejection fraction was likely no greater than10%. Akinesis of the inferior and posterior schmitz, moderate to severe hypokinesis of all other segments of the left ventricle. AORTIC VALVE: Trileaflet;slightly thickened leaflets. Doppler: Transvalvular velocity was within the normal range. There was no stenosis. No regurgitation. AORTA: Aortic root: The aortic root was normal in size. MITRAL VALVE: Mildly thickened leaflets, . Doppler: Transvalvular velocity was within the normal range. There was no evidence for stenosis. Mild regurgitation. Valve area by pressure half-time: 4.78cm^2. Indexed valve area by pressure half-time: 3.14cm^2/m^2. Peak gradient: 5mm Hg (D). LEFT ATRIUM: The atrium was mildly dilated. RIGHT VENTRICLE: The cavity size was mildly dilated. Wall thickness was normal. Systolic function was moderately to severely reduced. PULMONIC VALVE: Doppler: Transvalvular velocity was within the normal range. There was no evidence for stenosis. No regurgitation. TRICUSPID VALVE: Structurally normal valve. Doppler: Transvalvular velocity was within the normal range. Mild regurgitation. Peak gradient: 26mm Hg (D). PULMONARY ARTERY: The main pulmonary artery was normal-sized. Systolic pressure was within the normal range. RIGHT ATRIUM: The atrium was mildly dilated. PERICARDIUM: There was no pericardial effusion. SYSTEMIC VEINS: Inferior vena cava: The vessel was normal in size. Patient weight: 109.8lb _Ejection fraction:_ 65-75% _Fractional shortening:_ 32% up to 5Kg 5-11.5Kg 11.6-22.9Kg 23-45Kg 45-57Kg Aortic Root 7-13 <17 13-22 17-27 17-27 LA diam 6-13 <23 24-38 33-47 37-40 RVID 10-17 7-15 7-15 7-18 8-17 LVIDd 12-22 <32 24-38 33-47 37-40 LVPW 2-4 3-6 5-7 6-8 7-8 IVS 2-4 3-6 5-7 6-8 7-8 BASIC MEASUREMENTS ADULT NORMAL Left ventricle LV internal dimension, ED, chordal 48.5 mm 43-52 level, PLAX LV internal dimension, ES, chordal *48.2 mm 23-38 level, PLAX Fractional shortening, chordal level, *1 % >29 PLAX LV posterior wall thickness, ED 9.22 mm IVS/LVPW ratio, ED 1.19 <1.3 Volume, ED, MOD, 1-plane 116 ml Volume, ES, MOD, 1-plane 108 ml Ejection fraction, MOD, 1-plane 7 % Stroke volume, MOD, 1-plane 8 ml Volume index, ED, MOD, 1-plane 76 ml/m^2 Volume index, ES, MOD, 1-plane 71 ml/m^2 Stroke index, MOD, 1-plane 5.3 ml/m^2 Volume, ED, MOD, 2-plane 120 ml Volume, ES, MOD, 2-plane 116 ml Ejection fraction, MOD, 2-plane 3 % Stroke volume, MOD, 2-plane 4 ml Volume index, ED, MOD, 2-plane 79 ml/m^2 Volume index, ES, MOD, 2-plane 76 ml/m^2 Stroke index, MOD, 2-plane 2.6 ml/m^2 Ventricular septum Septal thickness, ED 11 mm Aortic valve Leaflet separation 15 mm 15-26 Left atrium Anterior-posterior dimension 31 mm Anterior-posterior dimension index 2.04 cm/m^2 <2.2 Right ventricle RV internal dimension, ED, PLAX 23.6 mm 19-38 BASIC MEASUREMENTS ADULT NORMAL Aortic valve Leaflet separation 15 mm 15-26 Aorta Root diameter, ED 30 mm 20-37 DOPPLER MEASUREMENTS ADULT NORMAL Main pulmonary artery Pressure, S 25 mm Hg =30 Aortic valve Peak velocity, S 122 cm/s Mitral valve Peak E-wave velocity 107 cm/s Peak A-wave velocity 69.1 cm/s Pressure half-time 46 ms Peak gradient, D 5 mm Hg Peak E/A ratio 1.5 Valve area, pressure half-time 4.78 cm^2 Valve area index, pressure half-time 3.14 cm^2/m^2 Tricuspid valve Peak gradient, D 26 mm Hg Maximal inflow velocity 257 cm/s Regurgitant peak velocity 220 cm/s Peak RV-RA gradient, S 19 mm Hg Systemic veins Estimated CVP 10 mm Hg Right ventricle RV pressure, S 29 mm Hg <30 Pulmonic valve Peak velocity, S 103 cm/s LEGEND: Mean values are shown as u=mean value. Asterisk (*) carreon values outside specified normal range. Prepared and signed by Pablito Ceja [id number]
[2016-10-01 14:47] LABS: BICARBONATE 23.9 MEQ/L (21.0-32.0); POTASSIUM 4.4 MEQ/L (3.5-5.1)
--- NOTE | 2016-10-01 17:34 | PD.VS.CON ---
History of Present Illness Chief Complaint: Pt c/o Bilat Lower extremity pain, swelling and weeping times a few weeks with worsening symptoms times a few days Consult Requested by: Dr. Valarie MD History of Present Illness As reported 76-year-old female with history of CAD, CABG, hypertension, hyperlipidemia, CHF , who is here for evaluation of bilateral lower extremity edema, ulcerations, and weeping which has been worsening over last few days. Patient reports that the symptoms have been going on for the last month, however the weeping has been worse over the last week. She is having a moderate amount of pain in her lower extremities which is worse with movement, weightbearing, and palpation. She denies chest pain or dyspnea. Chart review shows that she had an echocardiogram on 02/21/13 with an EF of 20-25% with diffuse hypokinesis. She denies fevers or chills. No history of DVT or PE. She states that she was seen by her primary care physician who told her that she has poor circulation in her legs. She was actually placed on hospice last year but was distant and rolled in May 2016. She wishes to be DNR but does want some assistance with her current heart failure and peripheral vascular disease associated pain. 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 Lives with one adult son Home Medications Reported Medications Albuterol Neb 2.5 Mg/3 Ml Neb2.5 Mg NEB Q4HR NEB PRN (SHORTNESS OF BREATH) #60 NEBULE Ref 0 09/30/[address] 81 Mg Tabdr81 Mg PO EVERY OTHER DAY Ref 0 09/30/16 Fexofenadine 60 Mg Tab60 Mg PO DAILY #60 TAB Ref 0 09/30/16 Ipratropium Neb 0.5 Mg/2.5 Ml Amp0.5 Mg NEB Q4HR NEB PRN (SHORTNESS OF BREATH) Ref 0 09/30/16 Furosemide (Lasix)20 Mg Tab20 Mg PO DAILY #30 TAB Ref 0 09/30/16 Potassium Chloride ER (K-Tab)10 Meq Tab10 Meq PO DAILY #30 TAB Ref 0 09/30/16 Diphenhydramine (Benadryl Allergy)25 Mg Tab25 Mg PO BID Ref 0 09/30/16 Tramadol 50 Mg Tab50 Mg PO Q6H PRN (PAIN) Ref 0 09/30/16 Simvastatin 80 Mg Tab80 Mg PO HS #30 TAB Ref 0 09/30/16 Coded Allergies: Sulfa (Verified Allergy, Mild, 09/30/16) Molds and Smuts (Verified Allergy, Unknown, 09/30/16) *MDRO Multi-Drug Resistant Organism (Verified Adverse Reaction, Unknown, ) MRSA PCR Screen POSITIVE 10/01/16 Physical Exam Vitals/I&O Date Time Temp Pulse Resp B/P Pulse Ox O2 Delivery O2 Flow Rate FiO2 10/01/16 16:00 104 10/01/16 14:00 114 10/01/16 12:00 104 10/01/16 10:00 114 10/01/16 08:00 109 10/01/16 08:00 94 Nasal Cannula 2.00 10/01/16 08:00 97.9 109 16 104/57 97 10/01/16 07:21 97 Nasal Cannula 3.00 10/01/16 06:00 114 10/01/16 04:00 111 10/01/16 04:00 98.0 111 13 105/55 99 10/01/16 02:16 93 Nasal Cannula 2.00 10/01/16 02:00 117 10/01/16 01:58 88 21 10/01/16 01:52 25 10/01/16 00:34 97.3 110 30 124/58 94 09/30/16 22:50 102 16 111/62 95 Nasal Cannula 09/30/16 21:48 104 16 118/64 95 Nasal Cannula 2 09/30/16 20:53 99 18 115/70 96 Nasal Cannula 2 09/30/16 20:13 18 96 Neuro: CN 2-12 intact Neck: supple Heart: +S1, S2 No murmurs noted Lungs: clear to auscultation upper lobes Diminished BS to lower lobe bases Abdomen: soft and non tender Vascular: Monophasic doppler signals noted to bilat DP/PT palpable bilat femoral pulses noted Extremities: Bilat lower ext with 1+ pitting edema with serosanguinous weeping drainage times a few days per patient BLE cool to touch with a cap refill greater than 5 sec Dusky discolored toes noted to bilat feet Laboratory Tests Test 09/30/16 09/30/16 10/01/16 10/01/16 18:45 19:30 00:15 00:44 White Blood Count 10.7 Red Blood Count 5.39 Hemoglobin 13.9 Hematocrit 43.6 Mean Corpuscular Volume 80.8 Mean Corpuscular Hemoglobin 25.9 Mean Corpuscular Hemoglobin 32.0 Concent Red Cell Distribution Width 16.6 Platelet Count 225 Mean Platelet Volume 8.5 Neutrophils (%) (Auto) 70.5 Lymphocytes (%) (Auto) 20.3 Monocytes (%) (Auto) 8.3 Eosinophils (%) (Auto) 0.2 Basophils (%) (Auto) 0.7 Neutrophils # (Auto) 7.6 Lymphocytes # (Auto) 2.2 Monocytes # (Auto) 0.9 Eosinophils # (Auto) 0.0 Basophils # (Auto) 0.1 CBC Comment DIFF FINAL Differential Comment Prothrombin Time 14.3 Prothromb Time International 1.3 Ratio Activated Partial 28.3 Thromboplast Time Sodium Level 118 121 Potassium Level 5.1 4.8 Chloride Level 81 86 Carbon Dioxide Level 23.9 22.6 Anion Gap 13 12 Blood Urea Nitrogen 31 28 Creatinine 1.21 1.04 Estimat Glomerular Filtration 43 52 Rate Random Glucose 70 66 Calcium Level 9.1 9.2 Total Bilirubin 1.3 Aspartate Amino Transf 45 (AST/SGOT) Alanine Aminotransferase 55 (ALT/SGPT) Alkaline Phosphatase 132 Total Creatine Kinase 189 Creatine Kinase MB 5.8 Troponin I 0.02 B-Type Natriuretic Peptide 4855 Total Protein 6.7 Albumin 3.2 Lactic Acid Level 1.8 Nasal Screen MRSA (PCR) POSITIVE Test 10/01/16 10/01/16 04:50 13:58 Sodium Level 119 121 Potassium Level 4.5 4.4 Chloride Level 85 87 Carbon Dioxide Level 23.4 23.9 Anion Gap 11 10 Blood Urea Nitrogen 28 28 Creatinine 1.14 1.25 Estimat Glomerular Filtration 46 42 Rate Random Glucose 88 116 Calcium Level 9.2 8.6 Total Bilirubin 1.4 Aspartate Amino Transf 44 (AST/SGOT) Alanine Aminotransferase 55 (ALT/SGPT) Alkaline Phosphatase 122 Total Protein 6.5 Albumin 3.2 Date/Time Procedure Status Source Growth 09/30/16 19:25 Aerobic Blood Culture - Preliminary Resulted Blood Peripheral NO GROWTH IN 1 DAY 09/30/16 19:25 Anaerobic Blood Culture - Preliminary Resulted Blood Peripheral NO GROWTH IN 1 DAY Last 48 hours Impressions Chest X-Ray 09/30/16 1829 Signed Impressions: Service Date/Time: Friday, September 30, 2016 18:46 - CONCLUSION: Hyperaeration with interstitial infiltrates bilaterally. Pulmonary edema versus pneumonia would be the considerations. Ronak Bedoya MD Tibia/Fibula X-Ray 09/30/16 0000 Signed Impressions: Service Date/Time: Friday, September 30, 2016 18:49 - CONCLUSION: Osteopenia. Otherwise unremarkable examination. Ronak Bedoya MD Tibia/Fibula X-Ray 09/30/16 0000 Signed Impressions: Service Date/Time: Friday, September 30, 2016 18:53 - CONCLUSION: Osteopenia. Degenerative changes at the knee joint. Otherwise, unremarkable exam. Ronak Bedoya MD Lower Extremity Ultrasound 09/30/16 0000 Signed Impressions: Service Date/Time: Friday, September 30, 2016 18:51 - CONCLUSION: No evidence of DVT. Ronak Bedoya MD Aorta w/Runoff CTA 09/30/16 0000 Signed Impressions: Service Date/Time: Friday, September 30, 2016 21:17 - CONCLUSION: 1. There is aneurysmal dilatation of the upper abdominal aorta measuring 3.8 x 3.8 cm. 2. There is aneurysmal dilatation of the infrarenal abdominal aorta measuring 4.0 x 3.3 cm 3. There is diffuse atherosclerotic plaquing throughout the aorta. 4. There is diffuse calcified plaques involving the pelvic vessels bilaterally as well as the lower extremities bilaterally without evidence of segmental occlusion. 5. There is at least a 2 vessel runoff to both ankles. Ronak Bedoya MD Assessment and Plan Assessment: (1) Peripheral arterial disease Status: Acute Plan Plan Further testing needed for evaluation of PAD Potentially will need an angiogram for further evaluation Sabina Live Oct 01, 2016 17:34
[2016-10-01] MEDS: PRAVASTATIN SOD 80 MG TAB PO SCH (20:31)
[2016-10-01] MEDS: diphenhydrAMINE HCL 25 MG CAP PO PRN (20:31)
[2016-10-01] MEDS ORDERED: VANCOMYCIN INJ 600 MG in SODIUM CHLOR 0.9% 250 ML INJ 250 ML IV SCH (21:00)
[2016-10-01] MEDS ORDERED: NON-FORMULARY DRUG (Simvastatin 80 MG) PO SCH (21:00)
[2016-10-02] VITALS (14 sets, daily range): BP systolic 101–116; BP diastolic 55–87; PULSE 54–112; RESP 10–37; TEMP 97.8–98.3; O2SAT 93–100
[2016-10-02] MEDS: CHLORHEXIDINE GLUCONATE 2 % 1 PACK (2 CLOTHS)(taper/protocol) TOP SCH ×2 (04:00→22:18)
[2016-10-02] MEDS: diphenhydrAMINE HCL 25 MG CAP PO PRN ×2 (04:53→09:52)
[2016-10-02] MEDS: MORPHINE SULFATE 4 MG/ML INJ IV PUSH PRN ×3 (04:54→18:27)
[2016-10-02 05:39] LABS: BICARBONATE 23.6 MEQ/L (21.0-32.0); POTASSIUM 4.5 MEQ/L (3.5-5.1)
[2016-10-02] MEDS: SODIUM CHLORIDE 0.9% FLUSH 5 ML FLUSH IVF SCH ×2 (09:00→21:00)
--- NOTE | 2016-10-02 09:04 | HHI.PR ---
Subjective Remarks pt more awake and answering appropriately today. Objective Vitals awake. following commands oriented heart reg lung cta abd s/nt ext lower ext edema better but still with pedal edema and cool/ischemic appearance bilaterally with areas of black/bluish tissue and tevin toes. Vital Signs Date Time Temp Pulse Resp B/P Pulse Ox O2 Delivery O2 Flow Rate FiO2 10/02/16 08:43 99 Nasal Cannula 4.00 10/02/16 08:00 97.8 102 16 101/55 100 10/02/16 08:00 95 Nasal Cannula 4.00 10/02/16 08:00 104 10/02/16 06:00 103 10/02/16 05:10 14 10/02/16 04:00 98.0 102 10 104/55 93 10/02/16 04:00 102 10/02/16 02:00 101 10/02/16 00:00 102 10/02/16 00:00 98.1 102 12 104/58 98 10/01/16 22:00 99 10/01/16 21:55 94 Nasal Cannula 4.00 10/01/16 20:00 95 Nasal Cannula 4.00 10/01/16 20:00 104 10/01/16 20:00 98.0 104 20 97/54 95 10/01/16 18:00 114 10/01/16 16:00 104 10/01/16 16:00 98.0 100 18 90/56 96 10/01/16 14:00 114 10/01/16 12:00 104 10/01/16 10:00 114 10/01/16 10/01/16 10/02/16 15:00 23:00 07:00 Intake Total 420 ml 400 ml 467 ml Output Total 600 ml 700 ml 150 ml Balance -180 ml -300 ml 317 ml Intake Oral 420 ml 400 ml 200 ml IV Total 0 ml 267 ml Output Urine Total 600 ml 700 ml 150 ml Stool Total 0 ml # Bowel Movements 0 Result Diagram: 09/30/16 1845 10/02/16 0442 Imaging Last 72 hours Impressions Chest X-Ray 09/30/16 1829 Signed Impressions: Service Date/Time: Friday, September 30, 2016 18:46 - CONCLUSION: Hyperaeration with interstitial infiltrates bilaterally. Pulmonary edema versus pneumonia would be the considerations. Ronak Bedoya MD Tibia/Fibula X-Ray 09/30/16 0000 Signed Impressions: Service Date/Time: Friday, September 30, 2016 18:49 - CONCLUSION: Osteopenia. Otherwise unremarkable examination. Ronak Bedoya MD Tibia/Fibula X-Ray 09/30/16 0000 Signed Impressions: Service Date/Time: Friday, September 30, 2016 18:53 - CONCLUSION: Osteopenia. Degenerative changes at the knee joint. Otherwise, unremarkable exam. Ronak Bedoya MD Lower Extremity Ultrasound 09/30/16 Signed Impressions: Service Date/Time: Friday, September 30, 2016 18:51 - CONCLUSION: No evidence of DVT. Ronak Bedoya MD A/P Problem List: (1) Ischemic cardiomyopathy Status: Acute Plan: Pt with severe chf with exacerbation. ef 20-25%. severe hyponatremia. felt to be related to hypervolemia underperfused feet bilaterally/wounds/ischemic tissue. pad/aneurysmal areas of abdomen aorta/infrarenal aorta but no segmental occlusion noted on cta/runoff. pt is dnr cont iv diuresis not tolerating bp meds. vascular was consulted for opinion wound care echo Pt wishes for us to consult hospice and comfort measures only. she says that she was on hospice before and wishes to return to hospice. she says no to any type of invasive procedures. (2) Hyponatremia Status: Acute Plan: see above (3) Peripheral arterial disease Status: Acute Plan: see above (4) Thoracic aortic aneurysm without rupture Status: Chronic Plan: Follow-up as outpatient. (5) HTN (hypertension) Status: Chronic Plan: hold bp meds. (6) COPD (chronic obstructive pulmonary disease) Status: Chronic Plan: Continue nebulizers. (7) Tobacco abuse Status: Chronic Plan: cessation. Jasvir Darnell MD Oct 02, 2016 09:04
[2016-10-02] MEDS: ASPIRIN 81 MG CHEW TAB CHEW SCH (09:07)
[2016-10-02] MEDS: FUROSEMIDE 40 MG/4 ML VIAL IV PUSH SCH ×2 (09:07→18:00)
--- NOTE | 2016-10-02 12:36 | RADRPT ---
EXAM DATE/TIME: 10/01/2016 00:00 [facility] COMPARISON: CTA RUNOFF W 3D RECON, September 30, 2016, 21:17. INDICATIONS : Right Foot Pain with Wheeping ulcer TECHNIQUE: Four-cuff ankle and brachial pressures were obtained. Pulse cuff waveform tracings of the ankles were recorded, and ankle-brachial indices were calculated. PRESSURES (mmHg): Brachial (arm): Right 98 Left IV SITE Ankle: Right 45 Left 0 BELKIS: Right 0.46 Left 0.00 TBI: Right 0.00 Left 0.00 PULSED CUFF WAVEFORMS: Severely diminished waveforms bilaterally. CONCLUSION: 1. Severely diminished BELKIS on the right. BELKIS on the left cannot be obtained. 2. Exam would suggest severe peripheral vascular disease. CT angiography with runoff would be warrant ed for further assessment. Aaron Pickens MD on October 02, 2016 at 12:31 Board Certified Radiologist. This report was verified electronically.
[2016-10-02] MEDS: PRAVASTATIN SOD 80 MG TAB PO SCH (21:00)
[2016-10-02] MEDS ORDERED: VANCOMYCIN INJ 750 MG in SODIUM CHLOR 0.9% 250 ML INJ 250 ML IV SCH (21:00)
[2016-10-03] VITALS (7 sets, daily range): BP systolic 86–98; BP diastolic 49–56; PULSE 97–103; RESP 13–19; TEMP 97.8–98.2; O2SAT 94–99
[2016-10-03] MEDS: MORPHINE SULFATE 4 MG/ML INJ IV PUSH PRN ×2 (01:06→04:32)
[2016-10-03] MEDS: diphenhydrAMINE HCL 25 MG CAP PO PRN (04:32)
--- NOTE | 2016-10-03 08:21 | HHI.PR ---
Subjective Remarks lethargic heart reg lung course bs abd s/nt ext feet edematous/dorsal black/bluish discoloration with tevin and cool toes. Objective Vitals Vital Signs Date Time Temp Pulse Resp B/P Pulse Ox O2 Delivery O2 Flow Rate FiO2 10/03/16 06:00 100 10/03/16 04:52 25 10/03/16 04:00 97 10/03/16 04:00 97.8 99 19 91/50 94 10/03/16 02:00 100 10/03/16 00:00 99 10/03/16 00:00 98.0 99 13 95/56 99 10/02/16 22:00 102 10/02/16 20:00 108 10/02/16 20:00 97 Nasal Cannula 4.00 10/02/16 20:00 97.8 108 37 116/87 97 10/02/16 19:05 98 Nasal Cannula 4.00 10/02/16 18:00 103 10/02/16 16:00 103 10/02/16 16:00 98.3 112 16 107/59 97 10/02/16 14:00 104 10/02/16 12:00 98.0 108 16 103/58 97 10/02/16 12:00 104 10/02/16 10:00 104 10/02/16 08:43 99 Nasal Cannula 4.00 10/02/16 10/02/16 10/03/16 15:00 23:00 07:00 Intake Total 400 ml 240 ml 730 ml Output Total 175 ml 190 ml 150 ml Balance 225 ml 50 ml 580 ml Intake Oral 320 ml 240 ml 480 ml IV Total 80 ml 0 ml 250 ml Output Urine Total 175 ml 190 ml 150 ml Stool Total 0 ml 0 ml Result Diagram: 09/30/16 1845 10/02/16 0442 Imaging Last 72 hours Impressions Chest X-Ray 09/30/16 1829 Signed Impressions: Service Date/Time: Friday, September 30, 2016 18:46 - CONCLUSION: Hyperaeration with interstitial infiltrates bilaterally. Pulmonary edema versus pneumonia would be the considerations. Ronak Bedoya MD Tibia/Fibula X-Ray 09/30/16 0000 Signed Impressions: Service Date/Time: Friday, September 30, 2016 18:49 - CONCLUSION: Osteopenia. Otherwise unremarkable examination. Ronak Bedoya MD Tibia/Fibula X-Ray 09/30/16 0000 Signed Impressions: Service Date/Time: Friday, September 30, 2016 18:53 - CONCLUSION: Osteopenia. Degenerative changes at the knee joint. Otherwise, unremarkable exam. Ronak Bedoya MD Lower Extremity Ultrasound 09/30/16 0000 Signed Impressions: Service Date/Time: Friday, September 30, 2016 18:51 - CONCLUSION: No evidence of DVT. Ronak Bedoya MD A/P Problem List: (1) Ischemic cardiomyopathy Status: Acute Plan: Pt with severe chf with exacerbation. ef 20-25%. severe hyponatremia. felt to be related to hypervolemia underperfused feet bilaterally/wounds/ischemic tissue. pad/aneurysmal areas of abdomen aorta/infrarenal aorta but no segmental occlusion noted on cta/runoff. pt is dnr cont diuretic not tolerating bp meds. vascular was consulted for opinion wound care Pt requested consult hospice and comfort measures only. she says that she was on hospice before and wishes to return to hospice. she says no to any type of invasive procedures. d/c today with hospice to home. (2) Hyponatremia Status: Acute Plan: see above (3) Peripheral arterial disease Status: Acute Plan: see above (4) Thoracic aortic aneurysm without rupture Status: Chronic Plan: Follow-up as outpatient. (5) HTN (hypertension) Status: Chronic Plan: hold bp meds. (6) COPD (chronic obstructive pulmonary disease) Status: Chronic Plan: Continue nebulizers. (7) Tobacco abuse Status: Chronic Plan: cessation. Jasvir Darnell MD Oct 03, 2016 08:21
[2016-10-03] MEDS ORDERED: K-TA10TA PO (08:27)
[2016-10-03] MEDS ORDERED: OXYC1CON4 PO ×2 (08:27→09:09)
[2016-10-03] MEDS ORDERED: LORA-474 PO (08:27)
[2016-10-03] MEDS ORDERED: FURO1TAB62 PO (08:27)
--- NOTE | 2016-10-03 08:28 | HHI.DCPOC ---
Discharge Care Plan Diagnosis: (1) Ischemic cardiomyopathy (2) Peripheral arterial disease (3) Hyponatremia Goals to Promote Your Health * To prevent worsening of your condition and complications * To maintain your health at the optimal level Directions to Meet Your Goals Take your medications as prescribed Follow your dietary instruction Follow activity as directed Keep your appointments as scheduled Take your immunizations and boosters as scheduled If your symptoms worsen call your PCP, if no PCP go to Urgent Care Center or Emergency Room Smoking is Dangerous to Your Health. Avoid second hand smoke Call the 24-hour hour crisis hotline for domestic abuse at Jasvir Darnell MD Oct 03, 2016 08:28
[2016-10-03] MEDS: ASPIRIN 81 MG CHEW TAB CHEW SCH (09:31)
[2016-10-03] MEDS: FUROSEMIDE 40 MG/4 ML VIAL IV PUSH SCH (09:31)
[2016-10-03] MEDS: SODIUM CHLORIDE 0.9% FLUSH 5 ML FLUSH IVF SCH (09:32)
[2016-10-03] MEDS ORDERED: MORP1SOL3 PO (10:13)
[2016-10-03] MEDS ORDERED: MORP20SO2 PO ×2 (10:17→12:24)
[2016-10-03] MEDS ORDERED: PHARMACY ORDERED LAB XX ONE (20:45)
--- NOTE | 2016-11-04 21:46 | HHI.DS ---
Discharge Summary Admission Date Sep 30, 2016 at 20:21 Discharge Date: Oct 03, 2016 Admitting Diagnosis CHF exac, Hyponatremia (1) Ischemic cardiomyopathy Diagnosis: Principal (2) Hyponatremia Diagnosis: Principal (3) Peripheral arterial disease Diagnosis: Secondary (4) Thoracic aortic aneurysm without rupture Diagnosis: Secondary (5) HTN (hypertension) Diagnosis: Secondary (6) COPD (chronic obstructive pulmonary disease) Diagnosis: Secondary (7) Tobacco abuse Diagnosis: Secondary Brief History 76-year-old female with history of CAD, CABG, hypertension, hyperlipidemia, CHF , who is here for evaluation of bilateral lower extremity edema, ulcerations, and weeping which has been worsening over last few days. Patient reports that the symptoms have been going on for the last month, however the weeping has been worse over the last week. She is having a moderate amount of pain in her lower extremities which is worse with movement, weightbearing, and palpation. She denies chest pain or dyspnea. Chart review shows that she had an echocardiogram on 02/21/13 with an EF of 20-25% with diffuse hypokinesis. She denies fevers or chills. No history of DVT or PE. She states that she was seen by her primary care physician who told her that she has poor circulation in her legs. She was actually placed on hospice last year but was distant and rolled in May 2016. She wishes to be DNR but does want some assistance with her current heart failure and peripheral vascular disease associated pain. Hospital Course Pt with severe chf with exacerbation. ef 20-25%. severe hyponatremia. felt to be related to hypervolemia underperfused feet bilaterally/wounds/ischemic tissue. pad/aneurysmal areas of abdomen aorta/infrarenal aorta but no segmental occlusion noted on cta/runoff. pt is dnr cont diuretic not tolerating bp meds. vascular was consulted for opinion wound care Pt requested consult hospice and comfort measures only. she says that she was on hospice before and wishes to return to hospice. she says no to any type of invasive procedures. d/c today with hospice to home. Pt Condition on Discharge: Deteriorating Discharge Disposition: Hospice/ Home Discharge Instructions DIET: Follow Instructions for: Heart Healthy Diet Activities you can perform: Regular-No Restrictions New Medications: Lorazepam (Ativan) 1 Mg Tab 1 MG PO Q6H PRN ANXIETY AND/OR AGITATION #30 Ref 0 TAB Morphine Liq (Morphine Liq) 20 Mg/Ml Liq 5 MG PO Q4H PRN pain management Days 30 Ref 0 ML Changed Medications: Furosemide (Lasix) 20 Mg Tab 20 MG PO BID chf #60 Ref 0 TAB (Changed from: DAILY; 30) Potassium Chloride ER (K-Tab) 10 Meq Tab 10 MEQ PO BID Electrolyte Replacement #60 Ref 0 TAB (Changed from: DAILY; 30) Continued Medications: Albuterol Neb (Albuterol Neb) 2.5 Mg/3 Ml Neb 2.5 MG NEB Q4HR NEB PRN SHORTNESS OF BREATH #60 Ref [address] (Aspirin DR) 81 Mg Tabdr 81 MG PO EVERY OTHER DAY Ref 0 TAB Diphenhydramine (Benadryl Allergy) 25 Mg Tab 25 MG PO BID Allergies Ref 0 TAB Fexofenadine (Fexofenadine) 60 Mg Tab 60 MG PO DAILY Allergy Management #60 Ref 0 TAB Ipratropium Neb (Ipratropium Neb) 0.5 Mg/2.5 Ml Amp 0.5 MG NEB Q4HR NEB PRN SHORTNESS OF BREATH Ref 0 NEBULE Simvastatin (Simvastatin) 80 Mg Tab 80 MG PO HS Cholesterol Management #30 Ref 0 TAB Discontinued Medications: Tramadol (Tramadol) 50 Mg Tab 50 MG PO Q6H PRN PAIN Ref 0 TAB Jasvir Darnell MD Nov 04, 2016 21:46
== END 2016-10-03 13:52 | disposition hospice, home (50) | DRG 292 ==
LOC: NEPC 14:49 → NEDA 20:21 → HIME 10-01
PROVIDERS: ADMIT Hospitalist; ATTEND Hospitalist
DX: I11.0 Hypertensive heart disease with heart failure (principal); E87.1 Hypo-osmolality and hyponatremia; I71.2 Thoracic aortic aneurysm, without rupture; E87.5 Hyperkalemia; I50.9 Heart failure, unspecified; I73.9 Peripheral vascular disease, unspecified; J44.9 Chronic obstructive pulmonary disease, unspecified; I25.5 Ischemic cardiomyopathy; I25.10 Atherosclerotic heart disease of native coronary artery without angina pectoris; Z95.1 Presence of aortocoronary bypass graft; Z66 Do not resuscitate; F41.9 Anxiety disorder, unspecified; I70.248 Atherosclerosis of native arteries of left leg with ulceration of other part of lower leg; I70.238 Atherosclerosis of native arteries of right leg with ulceration of other part of lower leg
CPT/HCPCS: 71010; 73590; 75635; 80048; 80053; 82550; 82552; 83605; 83880; 84484; 85025; 85610; 85730; 87040; 87641; 93005; 93306; 93922; 93970; 96374; 96375; J1940; J2270; J2405; J2543; J3370; J7050; Q9967